=== PATIENT | male | born 1935 | race Caucasian/White ===

== ENCOUNTER → 2017-09-28 | Outpatient (CLI) | payer MEDICARE ==
[~2017-09-28] MED LIST: CALCIUM,MAG,ZINC PO; CHOL40002 PO; FURO40TA6 PO; GLUC1TAB9 PO; LOSA25TA5 PO; OMEG1CAP23 PO; OMNIPAQUE 350 MG/ML, 100ML BOTTLE ONE; POTA20TA6 PO; RANI300C PO; TESTOSTERONE IM; TIZA4TAB PO; TRAM50TA2 PO; TYLENOL ARTHRITIS PO; VITA400C43 PO; WARF3TAB7 PO; WARF7.5T6 PO
== END ==
LOC: CFH 11:56
PROVIDERS: ATTEND Internal Medicine
DX: K40.90 Unilateral inguinal hernia, without obstruction or gangrene, not specified as recurrent (principal); I72.3 Aneurysm of iliac artery; I71.4 Abdominal aortic aneurysm, without rupture; K43.9 Ventral hernia without obstruction or gangrene; K42.9 Umbilical hernia without obstruction or gangrene; J84.10 Pulmonary fibrosis, unspecified; M48.56XD Collapsed vertebra, not elsewhere classified, lumbar region, subsequent encounter for fracture with routine healing; R52 Pain, unspecified
CPT/HCPCS: 74177; Q9967

== ENCOUNTER → 2018-01-16 | Outpatient (CLI) | payer MEDICARE ==
[~2018-01-16] MED LIST changes: -OMNIPAQUE 350 MG/ML, 100ML BOTTLE ONE; +WARF3TAB52 PO; -WARF3TAB7 PO
== END ==
LOC: CFH 08:22
PROVIDERS: ATTEND Internal Medicine
DX: Z02.9 Encounter for administrative examinations, unspecified (principal)

== ENCOUNTER → 2018-05-04 | Outpatient (CLI) | payer MEDICARE ==
[~2018-05-04] MED LIST changes: +WARF7.5T46 PO; -WARF7.5T6 PO
== END | disposition home or self-care (01) ==
LOC: CFH 13:19
PROVIDERS: ATTEND Internal Medicine
DX: I25.10 Atherosclerotic heart disease of native coronary artery without angina pectoris (principal); I71.9 Aortic aneurysm of unspecified site, without rupture; I72.3 Aneurysm of iliac artery; I70.0 Atherosclerosis of aorta; I71.4 Abdominal aortic aneurysm, without rupture; K40.90 Unilateral inguinal hernia, without obstruction or gangrene, not specified as recurrent; K76.0 Fatty (change of) liver, not elsewhere classified; N28.1 Cyst of kidney, acquired; R93.7 Abnormal findings on diagnostic imaging of other parts of musculoskeletal system
CPT/HCPCS: 74174; 82565

== ENCOUNTER → 2018-05-29 | Outpatient (CLI) | payer MEDICARE | END | disposition home or self-care (01) | LOC: CFH 14:03 | PROVIDERS: ATTEND Internal Medicine | DX: G31.9 Degenerative disease of nervous system, unspecified (principal); I73.9 Peripheral vascular disease, unspecified; R41.3 Other amnesia | CPT/HCPCS: 70551 ==

== ENCOUNTER 2019-10-10 06:06 | Inpatient (IN) | payer MEDICARE ==
[~2019-10-10] VITALS: Ht 182.9 cm; Wt 122.3 kg
[~2019-10-10 06:06] MED LIST changes: +LOSA25TA25 PO; -LOSA25TA5 PO; -TIZA4TAB PO; +TIZA4TAB2 PO
--- NOTE | 2019-10-10 06:20 | NUR ---
BIB [facility] FROM HOME WITH C/O DARK RED BLOOD IN URINE X E EPISODES SINCE YESTERDAY. PT ALSO C/O TESTICULAR AND LEFT LOWER BACK PAIN. PROVIDED PT WITH GOWN, MONITORS APPLIED, SIDERAILS UP X2, CALL LIGHT WITHIN REACH
[2019-10-10] MEDS ORDERED: TRAM50TA2 PO (06:28)
[2019-10-10] MEDS ORDERED: ROSU5TAB PO (06:28)
[2019-10-10] MEDS ORDERED: LOSA25TA25 PO (06:28)
[2019-10-10] MEDS ORDERED: ONDANSETRON 2MG/ML, 2ML IVPush ONE (06:30)
[2019-10-10] MEDS ORDERED: ONDANSETRON 2MG/ML, 2ML ONE (06:39)
[2019-10-10] MEDS ORDERED: MORPHINE SULFATE 4 MG/ML, 1ML ONE ×3 (06:39→13:45)
--- NOTE | 2019-10-10 06:45 | NUR ---
CT DELAY, NEED PAIN MED.
[2019-10-10] MEDS: MORPHINE SULFATE 4 MG/ML, 1ML IVPush PRN ×2 (06:47→07:33)
--- NOTE | 2019-10-10 06:47 | NUR ---
pt medicated per mar
--- NOTE | 2019-10-10 06:57 | NUR ---
BEDSIDE REPORT GIVEN TO LIZBETH LONGORIA
--- NOTE | 2019-10-10 06:57 | NUR ---
CT CALLED AND NOTIFIED PT READY
--- NOTE | 2019-10-10 07:05 | NUR ---
REC BS REPORT PT RESTING WAITING ON CT PILLOW PROVIDED REQUESTING MORE PAIN MEDS
[2019-10-10 07:33] LABS: MICROSCOPIC INDICATED
[2019-10-10 07:34] LABS: CULTURE INDICATED? YES
[2019-10-10 07:57] LABS: BASOPHILS # (AUTO) 0.02 x10^3/uL (0-0.1); BASOPHILS % (AUTO) 0 % (0-1); EOSINOPHILS # (AUTO) 0.03 x10^3/uL (0-0.4); EOSINOPHILS % (AUTO) 0 % (1-7); LYMPHOCYTES # (AUTO) 0.84 x10^3/uL (1-3.4); LYMPHOCYTES % (AUTO) 10 % (22-44); MD NO; MEAN CORPUSCULAR HEMOGLOBIN 32.9 pg (27.5-34.5); MEAN CORPUSCULAR VOLUME 99.6 fL (81-97); MONOCYTES # (AUTO) 0.53 x10^3/uL (0.2-0.8); MONOCYTES % (AUTO) 6 % (2-9); NEUTROPHILS # (AUTO) 7.07 x10^3/uL (1.8-6.8); NEUTROPHILS % (AUTO) 83 % (42-75); PLATELET COUNT 133 x10^3/uL (130-400); RED BLOOD COUNT 4.72 x10^6/uL (4.38-5.82); RED CELL DISTRIBUTION WIDTH 14.4 % (9.4-14.8)
[2019-10-10 08:07] LABS: INTERNATIONAL NORMALIZED RATIO 3.89 (0.93-1.1); PROTHROMBIN TIME 38.8 Seconds (9.6-11.5)
[2019-10-10 08:10] LABS: ALANINE AMINOTRANSFERASE 19 U/L (12-78); ANION GAP 7 mmol/L (5-15); CALCIUM 9.1 mg/dL (8.5-10.1); CHLORIDE 109 mmol/L (98-107)
[2019-10-10 08:12] LABS: ALKALINE PHOSPHATASE 101 U/L (45-117); BILIRUBIN,TOTAL 1.2 mg/dL (0.2-1.0)
[2019-10-10] MEDS ORDERED: CEFTRIAXONE PMX 1GM/50ML 50 ML IV ONE (08:30)
[2019-10-10 09:33] LABS: CULTURE INDICATED? NO
--- NOTE | 2019-10-10 09:36 | NUR ---
REPORT RECEIVED FROM LIZBETH LONGORIA. AWAITING UA RESULTS AND DISPO AT THIS TIME.
[2019-10-10 09:44] LABS: MICROSCOPIC INDICATED
--- NOTE | 2019-10-10 10:29 | NUR ---
pt reports 8/10 left flank pain, req pain medicine. pt was 88% on 1L oxygen when assessed by this RN, oxygen titrated to achieve sat >90%. pt requiring 4L oxygen at this time. pts bp 175/87. EDMD Hassan notified of pt's bp, oxygen requirements and request for pain medicine.
[2019-10-10] MEDS ORDERED: LABETALOL 5MG/ML, 20ML IVPush ONE (10:30)
[2019-10-10] MEDS ORDERED: LABETALOL 5MG/ML, 20ML ONE (10:32)
--- NOTE | 2019-10-10 11:11 | NUR ---
HOSPITALIST DWAYNE AT BEDSIDE FOR ADMIT ASSESSMENT.
--- NOTE | 2019-10-10 11:15 | NUR ---
Note undone in EDM - 10/10/19 at 1129 by JP Pop paged a second time to review abx orders. No answer when called, message left with call back number. PIV placed to left foream, IVF restarted to this side as PIV to right forearm is painful at site. Pt resting in hospital bed after changing clothes with RN assist. Resps even and mildly labored, all monitors in place. pt satting >90% on 2L oxygen via NC. awaiting room on med-surg at this time. awaiting RT tx.
[2019-10-10] MEDS ORDERED: SODIUM CHLORIDE 0.9% 1,000 ML IV SCH (11:16)
--- NOTE | 2019-10-10 11:29 | NUR ---
NOTE UNDONE, CHARTED ON WRONG PT.
[2019-10-10] MEDS ORDERED: ONDANSETRON 2MG/ML, 2ML IVPush PRN (11:30)
[2019-10-10] MEDS ORDERED: POLYETHYLENE GLYCOL 17 GM PACKET PO PRN (11:30)
[2019-10-10] MEDS ORDERED: ACETAMINOPHEN 325 MG TABLET PO PRN (11:30)
[2019-10-10] MEDS ORDERED: morphine SULFATE 10 MG/ML, 1ML IVPush PRN (11:30)
[2019-10-10] MEDS ORDERED: HYDROcodone/APAP 5/325 TABLET PO PRN (11:30)
[2019-10-10] MEDS ORDERED: DOCUSATE 100 MG CAPSULE PO PRN (11:30)
[2019-10-10] MEDS ORDERED: BISACODYL 10 MG SUPP PR PRN (11:30)
[2019-10-10] MEDS ORDERED: ENALAPRILAT 1.25 MG/ML, 1ML IV PRN ×2 (11:30→17:30)
--- NOTE | 2019-10-10 11:33 | NUR ---
PAULO RICE NOTIFIED PT REMAINS HYPERTENSIVE WITH SBP 170'S AFTER 10 MG IV LABETALOL. PRN ORDER RECEIVED FOR HYDRALAZINE.
[2019-10-10] MEDS ORDERED: hydrALAzine 20 MG/ML, 1ML ONE ×2 (11:41→15:19)
[2019-10-10] MEDS ORDERED: ENALAPRILAT 1.25 MG/ML, 1ML ONE (11:47)
--- NOTE | 2019-10-10 13:42 | NUR ---
PAULO Guerrero notified repeat bp 188/81 s/p vasotec. PA notified pt is in 9/10 pain to left flank. PA notified repeat room air sat assessment is 88% at this time. pt is a&o, resps are even and unlabored. PA instructed RN to administer PRN morphine for pain and order CXR. PA instructed RN to administer losartan 25 mg PO one time. abd CT results reviewed. RN requested parameters for prn vasotec. PA instructed RN to enter orders for vasotec to be administered for sbp >170.
--- NOTE | 2019-10-10 13:53 | NUR ---
LOSARTAN NOT IN ED DWIGHT MAHAN FROM PHARMACY. PT PLACED INTO HOSPITAL BED. PT MEDICATED PER EMAR WITH MORPHINE. PT TOLERATED WELL. AGRICULTURAL ADVISER AT BEDSIDE.
[2019-10-10] MEDS ORDERED: LOSARTAN 25MG TABLET PO ONE (14:00)
[2019-10-10] MEDS ORDERED: hydrALAzine 20 MG/ML, 1ML IV ONE (15:00)
--- NOTE | 2019-10-10 15:00 | NUR ---
HOSPITALIST DWAYNE NOTIFIED THAT PT IS STILL HYPERTENSIVE DESPITE MORPHINE ADMIN AND PO LOSARTAN ADMIN, (177/103). CXR RESULTS REVIEWED WITH PAULO RICE. ORDERS RECEIVED FOR ECHO AND IV HYDRALAZINE.
--- NOTE | 2019-10-10 15:33 | NUR ---
REPORT GIVEN TO LIZBETH GRAY AT BEDSIDE. PT FOUND TO BE OUT OF BED, PIV DISCONNECTED WITH LARGE AMOUNT OF BLOOD IN ROOM FROM IV HUB. PT STATES HE WAS GETTING OOB TO VOID. PIV DC'D WITH TIP INTACT. PIV REPLACED. PT CLEANED AND ASSISTED TO VOID. PT REMINDED OF HOW TO USE CALL LIGHT AND NEED TO CALL STAFF FOR ASSIST. PT HAS VOIDED APPROX 300ML BLOODY URINE. HOSPITALIST DWAYNE NOTIFIED. PT REMAINS A&O, RESPS EVEN AND UNLABORED. PT IN HOSPITAL BED. PT TO HAVE REPEAT BP TAKEN PRIOR TO HYDRALAZINE ADMIN. LIZBETH GRAY ASSUMING CARE AT THIS TIME.
[2019-10-10] MEDS ORDERED: PHYTONADIONE 10 MG in SODIUM CHLORIDE 0.9% 50 ML IV ONE (16:00)
--- NOTE | 2019-10-10 16:11 | NUR ---
FALL PRECAUTIONS IN PLACE, SIDE RAILS UP, CALL LIGHT IN LAP, INSTRUCTED PT TO CALL FOR ASSISTANCE IF NEEDING TO VOID AGAIN
--- NOTE | 2019-10-10 16:11 | NUR ---
BREAK RN FOR PRIMARY RN MARINA. BEDSIDE REPORT FROM MARINA. ADMITTING PROVIDER MARINA RICE AT BEDSIDE. IV HYDRALAZINE BEING HELD AT THIS TIME PER PROVIDER DWAYNE. VSS. LAB AT BEDSIDE. PT ASSISTED WITH URINAL, 100ML BLOODY URINE NOTED. DISCUSSED WITH MARINA RICE, ADMITTING PROVIDER, AWARE, NO NEW ORDERS RECEIVED. PT LEVEL OF CARE CHANGED TO MED TELE AT THIS TIME PER ADMIT PROVIDER. AQU[place]TON REQUESTED FROM PHARMACY
--- NOTE | 2019-10-10 16:38 | NUR ---
BREAK RN. ECHO AT BEDSIDE
--- NOTE | 2019-10-10 16:55 | NUR ---
BEDSIDE REPORT AND CARE BACK TO PRIMARY RN MARINA. PT ASSISTED WITH URINAL, RESTING IN POSITION OF COMFORT. VSS. CALL LIGHT IN REACH. ECHO REMAINS AT BEDSIDE
[2019-10-10 19:19] VITALS: BP 137/75
[2019-10-10 20:43] VITALS: BP 127/75
[2019-10-11 01:13] VITALS: BP 150/78
[2019-10-11 03:50] VITALS: BP 173/85
[2019-10-11 05:08] VITALS: BP 127/77
[2019-10-11 05:46] LABS: INTERNATIONAL NORMALIZED RATIO 1.98 (0.93-1.1); PROTHROMBIN TIME 20.3 Seconds (9.6-11.5)
[2019-10-11 05:52] LABS: BASOPHILS # (AUTO) 0.01 x10^3/uL (0-0.1); BASOPHILS % (AUTO) 0 % (0-1); EOSINOPHILS # (AUTO) 0.02 x10^3/uL (0-0.4); EOSINOPHILS % (AUTO) 0 % (1-7); LYMPHOCYTES # (AUTO) 0.93 x10^3/uL (1-3.4); LYMPHOCYTES % (AUTO) 11 % (22-44); MD NO; MEAN CORPUSCULAR HEMOGLOBIN 33.4 pg (27.5-34.5); MEAN CORPUSCULAR HGB CONC 32.8 g/dL (33.2-36.2); MEAN CORPUSCULAR VOLUME 101.9 fL (81-97); MEAN PLATELET VOLUME 9.9 fL (7.4-10.4); MONOCYTES # (AUTO) 1.07 x10^3/uL (0.2-0.8); MONOCYTES % (AUTO) 13 % (2-9); NEUTROPHILS # (AUTO) 6.53 x10^3/uL (1.8-6.8); NEUTROPHILS % (AUTO) 76 % (42-75); PLATELET COUNT 126 x10^3/uL (130-400); RED BLOOD COUNT 4.32 x10^6/uL (4.38-5.82); RED CELL DISTRIBUTION WIDTH 14.7 % (9.4-14.8)
[2019-10-11 06:08] LABS: ALBUMIN 3.5 g/dL (3.4-5.0); ANION GAP 7 mmol/L (5-15); CALCIUM 8.9 mg/dL (8.5-10.1); CHLORIDE 107 mmol/L (98-107)
[2019-10-11 06:21] LABS: ALANINE AMINOTRANSFERASE 21 U/L (12-78); ALKALINE PHOSPHATASE 76 U/L (45-117); BILIRUBIN,TOTAL 1.8 mg/dL (0.2-1.0); CREATININE 0.89 mg/dL (0.7-1.3); TOTAL PROTEIN 7.1 g/dL (6.4-8.2)
[2019-10-11] MEDS ORDERED: CEFTRIAXONE PMX 1GM/50ML 50 ML IV SCH (07:30)
[2019-10-11] MEDS ORDERED: LOSARTAN 25MG TABLET PO SCH (09:00)
[2019-10-11] MEDS ORDERED: LACTOBACILLUS CHEW TABLET PO SCH (09:00)
[2019-10-11] MEDS ORDERED: SODIUM CHLORIDE 0.9% 1,000 ML IV SCH (11:16)
[2019-10-11] MEDS ORDERED: WARFARIN 2 MG TABLET PO-COUM SCH (18:00)
== END 2019-10-11 11:09 | disposition home or self-care (01) | DRG 694 ==
LOC: ED 08:08 → EDIP 09:39 → 4EST 18:40 → DCLOUNGE 10-11 11:01
PROVIDERS: ADMIT Family Medicine; ATTEND Internal Medicine
PROC: 0T9B70Z Drainage of Bladder with Drainage Device, Via Natural or Artificial Opening (ICD-10-PCS; principal; 2019-10-10)
DX: N13.2 Hydronephrosis with renal and ureteral calculous obstruction (principal); D68.69 Other thrombophilia; I48.20 Chronic atrial fibrillation, unspecified; D75.89 Other specified diseases of blood and blood-forming organs; E88.09 Other disorders of plasma-protein metabolism, not elsewhere classified; I10 Essential (primary) hypertension; I71.4 Abdominal aortic aneurysm, without rupture; M19.90 Unspecified osteoarthritis, unspecified site; M85.80 Other specified disorders of bone density and structure, unspecified site; R31.0 Gross hematuria; Z79.01 Long term (current) use of anticoagulants; Z80.3 Family history of malignant neoplasm of breast; Z86.79 Personal history of other diseases of the circulatory system; Z87.442 Personal history of urinary calculi; Z87.11 Personal history of peptic ulcer disease; Z87.891 Personal history of nicotine dependence; Z88.6 Allergy status to analgesic agent; Z88.8 Allergy status to other drugs, medicaments and biological substances
CPT/HCPCS: 36415; 71045; 74176; 80053; 81001; 81003; 83735; 84100; 84443; 85014; 85018; 85025; 85610; 87077; 87086; 87186; 93306; 99285; G0378; J2405; J3430; J2270; J7030

== ENCOUNTER → 2019-10-18 | Outpatient (CLI) | payer MEDICARE ==
[~2019-10-18] MED LIST changes: +ROSU5TAB PO
== END | disposition home or self-care (01) ==
LOC: CFH 09:22
PROVIDERS: ATTEND Internal Medicine
DX: I51.7 Cardiomegaly (principal); J92.9 Pleural plaque without asbestos
CPT/HCPCS: 71046

== ENCOUNTER 2019-10-30 10:07 | Inpatient (IN) | payer MEDICARE ==
[2019-10-30] VITALS (12 sets, daily range): BP systolic 83–108; BP diastolic 39–55
[~2019-10-30] VITALS: Ht 167.6 cm; Wt 107.5 kg
[2019-10-30] MEDS ORDERED: SODIUM CHLORIDE FLUSH 10ML SYR IVF ONE (11:00)
[2019-10-30] MEDS ORDERED: ONDANSETRON 2MG/ML, 2ML IVPush ONE (11:00)
[2019-10-30] MEDS ORDERED: SODIUM CHLORIDE 0.9% 1,000ML IVBOLUS ONE ×4 (11:00→14:30)
[2019-10-30] MEDS ORDERED: PANTOPRAZOLE 40 MG IV IVPush ONE (11:00)
[2019-10-30 11:15] LABS: BASOPHILS # (AUTO) 0.02 x10^3/uL (0-0.1); BASOPHILS % (AUTO) 0 % (0-1); EOSINOPHILS # (AUTO) 0.04 x10^3/uL (0-0.4); EOSINOPHILS % (AUTO) 0 % (1-7); LYMPHOCYTES # (AUTO) 1.13 x10^3/uL (1-3.4); LYMPHOCYTES % (AUTO) 10 % (22-44); MD NO; MEAN CORPUSCULAR HEMOGLOBIN 32.5 pg (27.5-34.5); MEAN CORPUSCULAR HGB CONC 33.1 g/dL (33.2-36.2); MEAN CORPUSCULAR VOLUME 98.2 fL (81-97); MEAN PLATELET VOLUME 9.6 fL (7.4-10.4); MONOCYTES # (AUTO) 0.74 x10^3/uL (0.2-0.8); MONOCYTES % (AUTO) 7 % (2-9); NEUTROPHILS # (AUTO) 9.16 x10^3/uL (1.8-6.8); NEUTROPHILS % (AUTO) 83 % (42-75); PLATELET COUNT 158 x10^3/uL (130-400); RED BLOOD COUNT 3.45 x10^6/uL (4.38-5.82); RED CELL DISTRIBUTION WIDTH 14.4 % (9.4-14.8)
[2019-10-30 11:22] LABS: INTERNATIONAL NORMALIZED RATIO 4.92 (0.93-1.1); PROTHROMBIN TIME 48.6 Seconds (9.6-11.5)
[2019-10-30] MEDS ORDERED: PHYTONADIONE 10 MG/ML, 1ML ONE (11:49)
[2019-10-30] MEDS ORDERED: PANTOPRAZOLE 40 MG IV ONE (11:49)
[2019-10-30] MEDS ORDERED: ONDANSETRON 2MG/ML, 2ML ONE (11:49)
--- NOTE | 2019-10-30 11:59 | NUR ---
CT WAITING FOR LAB RESULTS
[2019-10-30] MEDS ORDERED: PHYTONADIONE 10 MG/ML, 1ML IM ONE (12:00)
--- NOTE | 2019-10-30 12:13 | NUR ---
DR ACUNA AT BEDSIDE. TEST RESULTS POC INCLUDING FFP INFUSION DISCUSSED AND QUESTIONS ANSWERED. PT MED NOTED AND CONSENT FOR FFP OBTAINED. PT OOB WITH RN ASSIST, VOIDED USING URINAL. PT RTD TO BED, CALL LIGHT W/I REACH
[2019-10-30 12:57] LABS: ALBUMIN 2.4 g/dL (3.4-5.0); ANION GAP 7 mmol/L (5-15); CALCIUM 8.3 mg/dL (8.5-10.1); CHLORIDE 112 mmol/L (98-107)
--- NOTE | 2019-10-30 13:00 | NUR ---
FFP INFUSION COMPLETED. PT TOLLERATED WELL.
[2019-10-30 13:03] LABS: ALANINE AMINOTRANSFERASE 29 U/L (12-78); ALKALINE PHOSPHATASE 59 U/L (45-117); BILIRUBIN,TOTAL 0.9 mg/dL (0.2-1.0); CREATININE 1.23 mg/dL (0.7-1.3); TOTAL PROTEIN 5.2 g/dL (6.4-8.2)
--- NOTE | 2019-10-30 13:16 | NUR ---
RN ASSISTED PT TO SIT AT SIDE OF [facility] TO USE URINAL. PT VOIDED SMALL AMT NOTED ON FLOWSHEET. PT TO CT WITH TECH TRANSPORT
[2019-10-30] MEDS ORDERED: OMNIPAQUE 350 MG/ML, 150 ML BOTTLE ONE (13:30)
[2019-10-30] MEDS ORDERED: SODIUM CHLORIDE FLUSH 10ML SYR IVF PRN (13:30)
--- NOTE | 2019-10-30 13:38 | NUR ---
PT BP CONTINUES LOW DESPITE FLUIDS AND FFP. PT ASYMPTOMATIC. DISCUSSED WITH DR. ACUNA, ADDITIONAL FLUID ORDER REC'D.
[2019-10-30] MEDS ORDERED: SODIUM CHLORIDE 0.9% 1,000 ML IV SCH (13:53)
[2019-10-30 13:54] LABS: MICROSCOPIC NOT IND
[2019-10-30 13:55] LABS: CULTURE INDICATED? NO
[2019-10-30] MEDS ORDERED: ONDANSETRON ODT 4 MG PO PRN (14:00)
[2019-10-30] MEDS ORDERED: ONDANSETRON 2MG/ML, 2ML IVPush PRN (14:00)
[2019-10-30] MEDS ORDERED: ACETAMINOPHEN 325 MG TABLET PO PRN (14:00)
[2019-10-30 14:08] LABS: INTERNATIONAL NORMALIZED RATIO 4.1 (0.93-1.1); PROTHROMBIN TIME 40.8 Seconds (9.6-11.5)
--- NOTE | 2019-10-30 14:24 | NUR ---
TASK RN; LARGE BORE PIV PLACED, NO COMPLICATIONS.
[2019-10-30] MEDS ORDERED: PHYTONADIONE 10 MG/ML, 1ML SQ ONE ×3 (14:30→19:30)
[2019-10-30] MEDS: PANTOPRAZOLE 80 MG in SODIUM CHLORIDE 0.9% 100 ML IV SCH (15:03)
[2019-10-30] MEDS ORDERED: TEST75PE6 IM (15:31)
[2019-10-30] MEDS ORDERED: ACET650S21 PO (15:31)
[2019-10-30] MEDS ORDERED: TRAM50TA2 PO (15:31)
[2019-10-30] MEDS ORDERED: FURO40TA6 PO (15:31)
[2019-10-30] MEDS ORDERED: POTA20TA6 PO (15:31)
[2019-10-30] MEDS ORDERED: MORPHINE SULFATE 4 MG/ML, 1ML ONE (16:03)
[2019-10-30] MEDS ORDERED: LABETALOL 5MG/ML, 20ML IVPush PRN (19:00)
[2019-10-31 00:27] VITALS: BP 106/47
[2019-10-31] MEDS: PANTOPRAZOLE 80 MG in SODIUM CHLORIDE 0.9% 100 ML IV SCH ×3 (00:39→21:04)
[2019-10-31 01:00] VITALS: BP 106/45
[2019-10-31 04:41] LABS: % IRON SATURATION 92 % (20-55); ANION GAP 4 mmol/L (5-15); CALCIUM 8.2 mg/dL (8.5-10.1); CHLORIDE 120 mmol/L (98-107); CREATININE 0.92 mg/dL (0.7-1.3); IRON LEVEL 230 mcg/dL (65-175); TOTAL IRON BINDING CAPACITY 249 mcg/dL (250-450)
[2019-10-31] MEDS ORDERED: MIDAZOLAM 1 MG/ML, 5ML ONE (06:44)
[2019-10-31] MEDS ORDERED: FENTANYL PF 100 MCG/2ML ONE ×3 (06:44→08:09)
[2019-10-31] MEDS ORDERED: SIMETHICONE DROPS 40 MG/0.6 ML BOTTLE ONE (07:23)
[2019-10-31 07:31] LABS: INTERNATIONAL NORMALIZED RATIO 2.73 (0.93-1.1); PROTHROMBIN TIME 27.6 Seconds (9.6-11.5)
[2019-10-31] MEDS ORDERED: LOSARTAN 25MG TABLET PO SCH (09:00)
[2019-10-31] MEDS ORDERED: FUROSEMIDE 20 MG/2 ML IV ONE (09:30)
[2019-10-31] MEDS: SUCRALFATE 1 GM/10 ML UDC PO SCH ×4 (09:56→21:04)
[2019-10-31] MEDS: SUCRALFATE 1 GM TABLET PO SCH ×3 (11:00→21:00)
[2019-10-31] MEDS ORDERED: SODIUM CHLORIDE 0.9% 1,000 ML IV SCH (13:53)
[2019-10-31 21:30] VITALS: BP 117/71
[2019-10-31] MEDS: MELATONIN 5 MG TABLET PO PRN (22:47)
[2019-11-01] MEDS ORDERED: TEMAZEPAM 15 MG CAPSULE PO ONE (01:00)
[2019-11-01 01:14] VITALS: BP 144/76
[2019-11-01 05:39] LABS: INTERNATIONAL NORMALIZED RATIO 1.66 (0.93-1.1); PROTHROMBIN TIME 17.1 Seconds (9.6-11.5)
[2019-11-01 05:40] LABS: ANION GAP 3 mmol/L (5-15); CALCIUM 8.5 mg/dL (8.5-10.1); CHLORIDE 113 mmol/L (98-107)
[2019-11-01 05:41] LABS: BASOPHILS # (AUTO) 0.01 x10^3/uL (0-0.1); BASOPHILS % (AUTO) 0 % (0-1); EOSINOPHILS # (AUTO) 0.17 x10^3/uL (0-0.4); EOSINOPHILS % (AUTO) 3 % (1-7); LYMPHOCYTES # (AUTO) 1.16 x10^3/uL (1-3.4); LYMPHOCYTES % (AUTO) 17 % (22-44); MD NO; MEAN CORPUSCULAR HEMOGLOBIN 32.4 pg (27.5-34.5); MEAN CORPUSCULAR HGB CONC 33.7 g/dL (33.2-36.2); MEAN CORPUSCULAR VOLUME 96.3 fL (81-97); MONOCYTES # (AUTO) 0.74 x10^3/uL (0.2-0.8); MONOCYTES % (AUTO) 11 % (2-9); NEUTROPHILS # (AUTO) 4.68 x10^3/uL (1.8-6.8); NEUTROPHILS % (AUTO) 69 % (42-75); PLATELET COUNT 111 x10^3/uL (130-400); RED BLOOD COUNT 2.87 x10^6/uL (4.38-5.82); RED CELL DISTRIBUTION WIDTH 16.1 % (9.4-14.8)
[2019-11-01] MEDS: SUCRALFATE 1 GM TABLET PO SCH (06:31)
[2019-11-01] MEDS: PANTOPRAZOLE 80 MG in SODIUM CHLORIDE 0.9% 100 ML IV SCH (06:32)
[2019-11-01] MEDS: SUCRALFATE 1 GM/10 ML UDC PO SCH ×4 (06:32→20:37)
[2019-11-01 06:52] VITALS: BP 118/57
[2019-11-01] MEDS: PANTOPROZOLE 40MG TABLET PO SCH ×2 (11:58→20:37)
[2019-11-01 19:05] VITALS: BP 108/65
[2019-11-02] MEDS: MELATONIN 5 MG TABLET PO PRN (00:36)
[2019-11-02 02:03] VITALS: BP 117/76
[2019-11-02 06:15] LABS: BASOPHILS # (AUTO) 0.02 x10^3/uL (0-0.1); BASOPHILS % (AUTO) 0 % (0-1); EOSINOPHILS # (AUTO) 0.15 x10^3/uL (0-0.4); EOSINOPHILS % (AUTO) 2 % (1-7); LYMPHOCYTES # (AUTO) 1.09 x10^3/uL (1-3.4); LYMPHOCYTES % (AUTO) 17 % (22-44); MD NO; MEAN CORPUSCULAR HEMOGLOBIN 32.8 pg (27.5-34.5); MEAN CORPUSCULAR HGB CONC 33.7 g/dL (33.2-36.2); MEAN CORPUSCULAR VOLUME 97.4 fL (81-97); MEAN PLATELET VOLUME 9.6 fL (7.4-10.4); MONOCYTES # (AUTO) 0.73 x10^3/uL (0.2-0.8); MONOCYTES % (AUTO) 12 % (2-9); NEUTROPHILS # (AUTO) 4.34 x10^3/uL (1.8-6.8); NEUTROPHILS % (AUTO) 69 % (42-75); PLATELET COUNT 117 x10^3/uL (130-400); RED BLOOD COUNT 2.79 x10^6/uL (4.38-5.82); RED CELL DISTRIBUTION WIDTH 15.5 % (9.4-14.8)
[2019-11-02] MEDS: SUCRALFATE 1 GM/10 ML UDC PO SCH ×2 (07:37→11:00)
[2019-11-02] MEDS: PANTOPROZOLE 40MG TABLET PO SCH (07:37)
[2019-11-02 09:22] VITALS: BP 127/75
[2019-11-02] MEDS ORDERED: SUCR1ORA5 PO (10:24)
[2019-11-02] MEDS ORDERED: PANT40TA5 PO (10:24)
== END 2019-11-02 13:00 | disposition home or self-care (01) | DRG 377 ==
LOC: ED 11:23 → EDIP 13:22 → ICU 15:13 → 3N 10-31 18:00 → DCLOUNGE 11-02 12:49
PROVIDERS: ADMIT Internal Medicine; ATTEND Internal Medicine
PROC: 30233K1 Transfusion of Nonautologous Frozen Plasma into Peripheral Vein, Percutaneous Approach (ICD-10-PCS; principal; 2019-10-30)
PROC: 30233N1 Transfusion of Nonautologous Red Blood Cells into Peripheral Vein, Percutaneous Approach (ICD-10-PCS; 2019-10-30)
PROC: 0DJ08ZZ Inspection of Upper Intestinal Tract, Via Natural or Artificial Opening Endoscopic (ICD-10-PCS; 2019-10-31)
DX: K26.4 Chronic or unspecified duodenal ulcer with hemorrhage (principal); R57.1 Hypovolemic shock; J96.91 Respiratory failure, unspecified with hypoxia; N17.9 Acute kidney failure, unspecified; D62 Acute posthemorrhagic anemia; D68.69 Other thrombophilia; E87.0 Hyperosmolality and hypernatremia; I48.20 Chronic atrial fibrillation, unspecified; D68.9 Coagulation defect, unspecified; N13.2 Hydronephrosis with renal and ureteral calculous obstruction; D72.829 Elevated white blood cell count, unspecified; E66.9 Obesity, unspecified; Z68.38 Body mass index [BMI] 38.0-38.9, adult; G31.84 Mild cognitive impairment of uncertain or unknown etiology; I10 Essential (primary) hypertension; I27.20 Pulmonary hypertension, unspecified; I71.4 Abdominal aortic aneurysm, without rupture; M19.90 Unspecified osteoarthritis, unspecified site; M85.80 Other specified disorders of bone density and structure, unspecified site; T45.515A Adverse effect of anticoagulants, initial encounter; Z79.01 Long term (current) use of anticoagulants; Z80.3 Family history of malignant neoplasm of breast; Z87.442 Personal history of urinary calculi; Z87.891 Personal history of nicotine dependence; Y92.89 Other specified places as the place of occurrence of the external cause
CPT/HCPCS: 36415; 71045; 74177; 80048; 80053; 81003; 83540; 83550; 83605; 83690; 83880; 85014; 85018; 85025; 85610; 86850; 86900; 86923; 87081; 93005; 99291; G0378; J2250; J2405; J3010; J3430; Q9967; C9113; J1940; J7030; P9016; P9017

== ENCOUNTER 2020-06-21 14:04 | Observation (INO) | payer MEDICARE ==
[~2020-06-21] VITALS: Ht 182.9 cm; Wt 113.2 kg
[~2020-06-21 14:04] MED LIST changes: +ACET650S21 PO; +PANT40TA6 PO; +SUCR1ORA5 PO; +TEST75PE6 IM
--- NOTE | 2020-06-21 14:17 | NUR ---
ASSUME CARE OF PATIENT. PATIENT LUIGI [facility] FOR A MGLF IN HIS BACKYARD. PT HIS HIS HEAD. NO LOC, BUT PT DOES HAVE A HEMATOMA ON THE BACK OF HIS HEAD. PT IS TAKING COUMADIN. PT ALSO HAS SEVERAL ABRASIONS ON HIS RIGHT ARM. VS STABLE. NO ACUTE DISTRESS NOTED. WILL CONTINUE TO MONITOR.
[2020-06-21] MEDS ORDERED: testosterone (14:22)
[2020-06-21] MEDS ORDERED: SODIUM CHLORIDE FLUSH 10ML SYR IVF ONE (14:30)
[2020-06-21] MEDS ORDERED: DIPH,PERTUSS(ACELL),TET VAC/PF 0.5 ML IM-VACC ONE ×2 (14:30→14:40)
[2020-06-21 14:56] LABS: BASOPHILS # (AUTO) 0.01 x10^3/uL (0-0.1); BASOPHILS % (AUTO) 0 % (0-1); EOSINOPHILS # (AUTO) 0.11 x10^3/uL (0-0.4); EOSINOPHILS % (AUTO) 2 % (1-7); LYMPHOCYTES # (AUTO) 0.97 x10^3/uL (1-3.4); LYMPHOCYTES % (AUTO) 15 % (22-44); MD NO; MEAN CORPUSCULAR HEMOGLOBIN 31.9 pg (27.5-34.5); MEAN CORPUSCULAR HGB CONC 33.2 g/dL (33.2-36.2); MEAN CORPUSCULAR VOLUME 96.2 fL (81-97); MEAN PLATELET VOLUME 9.6 fL (7.4-10.4); MONOCYTES # (AUTO) 0.77 x10^3/uL (0.2-0.8); MONOCYTES % (AUTO) 12 % (2-9); NEUTROPHILS # (AUTO) 4.59 x10^3/uL (1.8-6.8); NEUTROPHILS % (AUTO) 71 % (42-75); PLATELET COUNT 121 x10^3/uL (130-400); RED BLOOD COUNT 4.34 x10^6/uL (4.38-5.82); RED CELL DISTRIBUTION WIDTH 16.6 % (9.4-14.8)
[2020-06-21 15:05] LABS: ALANINE AMINOTRANSFERASE 20 U/L (12-78); ALBUMIN 3.7 g/dL (3.4-5.0); ANION GAP 6 mmol/L (5-15); CALCIUM 8.9 mg/dL (8.5-10.1); CHLORIDE 111 mmol/L (98-107); CREATININE 1.09 mg/dL (0.7-1.3)
[2020-06-21 15:07] LABS: ALKALINE PHOSPHATASE 126 U/L (45-117); TOTAL PROTEIN 7.4 g/dL (6.4-8.2)
--- NOTE | 2020-06-21 15:11 | NUR ---
PT YELLING IN PAIN, PT HAS A LEG CRAMP WHEN LAYING BACK IN BED. PT PLACED ON WAFFLE MATTRESS, BUT DID NOT HELP THE PAIN. PT REFUSES TO STAY IN THE BED. PT SITTING IN CHAIR. AT BEDSIDE. PROVIDER AWARE.
[2020-06-21 15:14] LABS: INTERNATIONAL NORMALIZED RATIO 1.65 (0.93-1.1); PROTHROMBIN TIME 17.1 Seconds (9.6-11.5)
--- NOTE | 2020-06-21 15:16 | NUR ---
PT WENT TO CT
--- NOTE | 2020-06-21 15:31 | NUR ---
CT CALLED, TEST NOT DONE, PT REFUSES TO LAY FLAT. PROVIDER AWARE.
--- NOTE | 2020-06-21 15:50 | NUR ---
RECEIVED REPORT FROM MARCELL NIEVES AND [facility]
[2020-06-21] MEDS ORDERED: ACETAMINOPHEN 325 MG TABLET ONE (15:54)
[2020-06-21] MEDS ORDERED: DIAZEPAM 5 MG/ML, 2ML ONE (15:54)
[2020-06-21] MEDS ORDERED: CYCLOBENZAPRINE 10 MG TABLET PO ONE (16:00)
[2020-06-21] MEDS ORDERED: ACETAMINOPHEN 325 MG TABLET PO ONE (16:00)
[2020-06-21] MEDS ORDERED: DIAZEPAM 5 MG/ML, 2ML IV ONE (16:00)
--- NOTE | 2020-06-21 16:03 | NUR ---
MEDICATED NOTED ON MAR IN ATTEMPT TO HELP PT WITH LEG CRAMPING AND TO TOLERATE CT.
--- NOTE | 2020-06-21 16:11 | NUR ---
TO CT VIA [facility]
[2020-06-21] MEDS ORDERED: OMNIPAQUE 350 MG/ML, 75ML BOTTLE ONE (16:51)
--- NOTE | 2020-06-21 16:57 | NUR ---
box icer note: Pt's son Serge's phone number: [phone] Per pt's Serge needs to be called with updates for pt POC. Serge is the pt's ride home.
--- NOTE | 2020-06-21 18:33 | NUR ---
PT AWARE OF INTENTION TO ADMIT. NO LONGER HAVING LEG CRAMPS AT THIS TIME. CONTINUE TO MONITOR.
--- NOTE | 2020-06-21 18:59 | NUR ---
PROVIDED SNACKS. REPORT TO MARIA R NIEVES
[2020-06-21] MEDS ORDERED: BISACODYL 10 MG SUPP PR PRN (19:30)
[2020-06-21] MEDS ORDERED: ACETAMINOPHEN 650 MG/20.3 ML UDC PO PRN (19:30)
[2020-06-21] MEDS ORDERED: ONDANSETRON ODT 4 MG PO PRN (19:30)
[2020-06-21] MEDS ORDERED: POLYETHYLENE GLYCOL 17 GM PACKET PO PRN (19:30)
--- NOTE | 2020-06-21 19:55 | NUR ---
Pt up to chair with 1 staff assist to eat dinner. Call light within reach
--- NOTE | 2020-06-21 20:02 | NUR ---
Attempted report x1 at 2000
--- NOTE | 2020-06-21 20:13 | NUR ---
Report given to Maisha NIEVES
[2020-06-21] MEDS: SODIUM CHLORIDE FLUSH 10ML SYR IVF SCH (21:00)
[2020-06-21 22:29] VITALS: BP 143/67
[2020-06-22 03:13] VITALS: BP 150/79
[2020-06-22 07:03] VITALS: BP 150/78
[2020-06-22] MEDS: SODIUM CHLORIDE FLUSH 10ML SYR IVF SCH (08:40)
[2020-06-22] MEDS ORDERED: SENNA/DOCUSATE TABLET PO SCH (09:00)
[2020-06-22] MEDS ORDERED: POTASSIUM CHLORIDE 20 MEQ TAB.ER.PRT PO SCH (09:00)
[2020-06-22] MEDS ORDERED: LOSARTAN 25MG TABLET PO SCH (09:00)
[2020-06-22] MEDS ORDERED: FUROSEMIDE 40 MG TABLET PO SCH (09:00)
== END 2020-06-22 11:05 | disposition home or self-care (01) ==
LOC: ED 14:31 → EDIP 17:56 → INTOOBSV 17:56 → 3N 21:45 → DCLOUNGE 06-22 11:00
PROVIDERS: ADMIT Family Medicine; ATTEND Family Medicine
DX: S01.01XA Laceration without foreign body of scalp, initial encounter (principal); I48.20 Chronic atrial fibrillation, unspecified; D68.69 Other thrombophilia; D69.6 Thrombocytopenia, unspecified; I10 Essential (primary) hypertension; M19.90 Unspecified osteoarthritis, unspecified site; I71.4 Abdominal aortic aneurysm, without rupture; M85.80 Other specified disorders of bone density and structure, unspecified site; Z23 Encounter for immunization; Z79.01 Long term (current) use of anticoagulants; W01.0XXA Fall on same level from slipping, tripping and stumbling without subsequent striking against object, initial encounter; Y92.009 Unspecified place in unspecified non-institutional (private) residence as the place of occurrence of the external cause; Y93.01 Activity, walking, marching and hiking
CPT/HCPCS: 36415; 70450; 71260; 72125; 80053; 85025; 85610; 90471; 90715; 96374; 99285; G0378; J3360; Q9967

== ENCOUNTER → 2020-10-03 | Outpatient (CLI) | payer MEDICARE ==
[~2020-10-03] MED LIST changes: +OMNIPAQUE 350 MG/ML, 150 ML BOTTLE ONE; +testosterone
== END | disposition home or self-care (01) ==
LOC: CFH 09:57
PROVIDERS: ATTEND Physician Assistant Surgical
DX: I71.4 Abdominal aortic aneurysm, without rupture (principal); N20.0 Calculus of kidney; N28.1 Cyst of kidney, acquired; R31.29 Other microscopic hematuria; Z96.641 Presence of right artificial hip joint
CPT/HCPCS: 74178; 82565; Q9967

== ENCOUNTER 2020-11-25 13:24 | Outpatient (CLI) | payer MEDICARE ==
[~2020-11-25 13:24] MED LIST changes: -OMNIPAQUE 350 MG/ML, 150 ML BOTTLE ONE
== END 2020-11-25 23:59 | disposition home or self-care (01) ==
LOC: WOUND 13:24
PROVIDERS: ATTEND Nurse Practitioner Family
DX: I87.333 Chronic venous hypertension (idiopathic) with ulcer and inflammation of bilateral lower extremity (principal); L97.822 Non-pressure chronic ulcer of other part of left lower leg with fat layer exposed; L97.812 Non-pressure chronic ulcer of other part of right lower leg with fat layer exposed; L03.115 Cellulitis of right lower limb; L03.116 Cellulitis of left lower limb; K21.9 Gastro-esophageal reflux disease without esophagitis; I48.91 Unspecified atrial fibrillation; I10 Essential (primary) hypertension; E78.5 Hyperlipidemia, unspecified; Z87.891 Personal history of nicotine dependence; Z79.01 Long term (current) use of anticoagulants
CPT/HCPCS: 29581; G0463

== ENCOUNTER 2020-11-28 10:25 | Outpatient (CLI) | payer MEDICARE | END 2020-11-28 23:59 | disposition home or self-care (01) | LOC: WOUND 10:25 | PROVIDERS: ATTEND Internal Medicine Cardiovascular Disease | DX: I87.333 Chronic venous hypertension (idiopathic) with ulcer and inflammation of bilateral lower extremity (principal); L97.812 Non-pressure chronic ulcer of other part of right lower leg with fat layer exposed; L97.822 Non-pressure chronic ulcer of other part of left lower leg with fat layer exposed; L03.115 Cellulitis of right lower limb; L03.116 Cellulitis of left lower limb; I87.2 Venous insufficiency (chronic) (peripheral); I48.91 Unspecified atrial fibrillation; I10 Essential (primary) hypertension; K21.9 Gastro-esophageal reflux disease without esophagitis; E78.5 Hyperlipidemia, unspecified; Z87.891 Personal history of nicotine dependence; Z96.642 Presence of left artificial hip joint; Z79.01 Long term (current) use of anticoagulants; Z90.89 Acquired absence of other organs | CPT/HCPCS: 29581 ==

== ENCOUNTER 2020-12-02 13:27 | Outpatient (CLI) | payer MEDICARE | END 2020-12-02 23:59 | disposition home or self-care (01) | LOC: WOUND 13:27 | PROVIDERS: ATTEND Nurse Practitioner Family | DX: I87.333 Chronic venous hypertension (idiopathic) with ulcer and inflammation of bilateral lower extremity (principal); L97.821 Non-pressure chronic ulcer of other part of left lower leg limited to breakdown of skin; L97.811 Non-pressure chronic ulcer of other part of right lower leg limited to breakdown of skin; L03.115 Cellulitis of right lower limb; L03.116 Cellulitis of left lower limb; I48.91 Unspecified atrial fibrillation; I10 Essential (primary) hypertension; K21.9 Gastro-esophageal reflux disease without esophagitis; E78.5 Hyperlipidemia, unspecified; Z87.891 Personal history of nicotine dependence; Z96.642 Presence of left artificial hip joint; Z79.01 Long term (current) use of anticoagulants; Z90.89 Acquired absence of other organs | CPT/HCPCS: 29581; G0463 ==

== ENCOUNTER → 2020-12-09 | Outpatient (CLI) | payer MEDICARE | END | disposition home or self-care (01) | LOC: WOUND 13:56 | PROVIDERS: ATTEND Nurse Practitioner Family | DX: I87.333 Chronic venous hypertension (idiopathic) with ulcer and inflammation of bilateral lower extremity (principal); L97.821 Non-pressure chronic ulcer of other part of left lower leg limited to breakdown of skin; L97.811 Non-pressure chronic ulcer of other part of right lower leg limited to breakdown of skin; L03.115 Cellulitis of right lower limb; L03.116 Cellulitis of left lower limb; I48.91 Unspecified atrial fibrillation; I10 Essential (primary) hypertension; K21.9 Gastro-esophageal reflux disease without esophagitis; E78.5 Hyperlipidemia, unspecified; Z87.891 Personal history of nicotine dependence; Z96.642 Presence of left artificial hip joint; Z79.01 Long term (current) use of anticoagulants; Z90.89 Acquired absence of other organs | CPT/HCPCS: G0463 ==

== ENCOUNTER 2020-12-17 07:53 | Outpatient (CLI) | payer MEDICARE | END 2020-12-17 23:59 | disposition home or self-care (01) | LOC: WOUND 07:53 | PROVIDERS: ATTEND Nurse Practitioner Family | DX: I87.333 Chronic venous hypertension (idiopathic) with ulcer and inflammation of bilateral lower extremity (principal); L97.822 Non-pressure chronic ulcer of other part of left lower leg with fat layer exposed; L97.811 Non-pressure chronic ulcer of other part of right lower leg limited to breakdown of skin; L03.115 Cellulitis of right lower limb; L03.116 Cellulitis of left lower limb; I48.91 Unspecified atrial fibrillation; K21.9 Gastro-esophageal reflux disease without esophagitis; E78.5 Hyperlipidemia, unspecified; Z87.891 Personal history of nicotine dependence; Z96.642 Presence of left artificial hip joint; Z79.01 Long term (current) use of anticoagulants; Z90.89 Acquired absence of other organs | CPT/HCPCS: 97597; 97598 ==

== ENCOUNTER 2020-12-23 14:39 | Outpatient (CLI) | payer MEDICARE | END 2020-12-23 23:59 | disposition home or self-care (01) | LOC: WOUND 14:39 | PROVIDERS: ATTEND Nurse Practitioner Family | DX: I87.333 Chronic venous hypertension (idiopathic) with ulcer and inflammation of bilateral lower extremity (principal); L97.812 Non-pressure chronic ulcer of other part of right lower leg with fat layer exposed; L97.822 Non-pressure chronic ulcer of other part of left lower leg with fat layer exposed; L03.115 Cellulitis of right lower limb; L03.116 Cellulitis of left lower limb; I48.91 Unspecified atrial fibrillation; I10 Essential (primary) hypertension; K21.9 Gastro-esophageal reflux disease without esophagitis; E78.5 Hyperlipidemia, unspecified; Z87.891 Personal history of nicotine dependence; Z96.642 Presence of left artificial hip joint; Z79.01 Long term (current) use of anticoagulants; Z90.89 Acquired absence of other organs | CPT/HCPCS: G0463 ==

== ENCOUNTER → 2020-12-30 | Outpatient (CLI) | payer MEDICARE | END | disposition home or self-care (01) | LOC: WOUND 08:39 | PROVIDERS: ATTEND Nurse Practitioner Family | DX: I87.333 Chronic venous hypertension (idiopathic) with ulcer and inflammation of bilateral lower extremity (principal); L97.812 Non-pressure chronic ulcer of other part of right lower leg with fat layer exposed; L97.822 Non-pressure chronic ulcer of other part of left lower leg with fat layer exposed; L03.115 Cellulitis of right lower limb; L03.116 Cellulitis of left lower limb; I48.91 Unspecified atrial fibrillation; K21.9 Gastro-esophageal reflux disease without esophagitis; E78.5 Hyperlipidemia, unspecified; Z87.891 Personal history of nicotine dependence; Z96.642 Presence of left artificial hip joint; Z79.01 Long term (current) use of anticoagulants; Z90.89 Acquired absence of other organs | CPT/HCPCS: G0463 ==

== ENCOUNTER 2021-01-06 09:41 | Outpatient (CLI) | payer MEDICARE | END 2021-01-06 23:59 | disposition home or self-care (01) | LOC: WOUND 09:41 | PROVIDERS: ATTEND Nurse Practitioner Family | DX: I87.333 Chronic venous hypertension (idiopathic) with ulcer and inflammation of bilateral lower extremity (principal); L97.812 Non-pressure chronic ulcer of other part of right lower leg with fat layer exposed; L97.822 Non-pressure chronic ulcer of other part of left lower leg with fat layer exposed; L03.115 Cellulitis of right lower limb; L03.116 Cellulitis of left lower limb; I48.91 Unspecified atrial fibrillation; K21.9 Gastro-esophageal reflux disease without esophagitis; E78.5 Hyperlipidemia, unspecified; Z87.891 Personal history of nicotine dependence; Z96.642 Presence of left artificial hip joint; Z79.01 Long term (current) use of anticoagulants; Z90.89 Acquired absence of other organs | CPT/HCPCS: G0463 ==

== ENCOUNTER → 2021-01-13 | Outpatient (CLI) | payer MEDICARE | END | disposition home or self-care (01) | LOC: WOUND 08:30 | PROVIDERS: ATTEND Nurse Practitioner Family | DX: I87.333 Chronic venous hypertension (idiopathic) with ulcer and inflammation of bilateral lower extremity (principal); L97.812 Non-pressure chronic ulcer of other part of right lower leg with fat layer exposed; L97.822 Non-pressure chronic ulcer of other part of left lower leg with fat layer exposed; L03.115 Cellulitis of right lower limb; L03.116 Cellulitis of left lower limb; I48.91 Unspecified atrial fibrillation; K21.9 Gastro-esophageal reflux disease without esophagitis; E78.5 Hyperlipidemia, unspecified; Z87.891 Personal history of nicotine dependence; Z96.642 Presence of left artificial hip joint; Z79.01 Long term (current) use of anticoagulants; Z90.89 Acquired absence of other organs | CPT/HCPCS: 97602 ==

== ENCOUNTER 2021-01-19 08:20 | Emergency (ER) | payer MEDICARE ==
[~2021-01-19] VITALS: Ht 182.9 cm; Wt 109.7 kg
--- NOTE | 2021-01-19 09:26 | NUR ---
TO [facility] FROM LOBBY
--- NOTE | 2021-01-19 09:30 | NUR ---
pt brought back with chief complaint of sob fr 3 days. PT denies other symptoms. Has had covid vaccine
[2021-01-19] MEDS ORDERED: SODIUM CHLORIDE FLUSH 10ML SYR IVF ONE (10:00)
[2021-01-19 10:20] LABS: BASOPHILS % (AUTO) 0 % (0-1); EOSINOPHILS % (AUTO) 2 % (1-7); LYMPHOCYTES % (AUTO) 17 % (22-44); MEAN CORPUSCULAR HEMOGLOBIN 32.3 pg (27.5-34.5); MEAN CORPUSCULAR HGB CONC 33.2 g/dL (33.2-36.2); MEAN PLATELET VOLUME 9.1 fL (7.4-10.4); MONOCYTES % (AUTO) 11 % (2-9); NEUTROPHILS % (AUTO) 70 % (42-75); PLATELET COUNT 127 x10^3/uL (130-400); RED BLOOD COUNT 3.51 x10^6/uL (4.38-5.82)
[2021-01-19 10:21] LABS: ANION GAP 5 mmol/L (5-15); CALCIUM 8.8 mg/dL (8.5-10.1); CHLORIDE 110 mmol/L (98-107)
[2021-01-19 10:22] LABS: ALANINE AMINOTRANSFERASE 13 U/L (12-78)
[2021-01-19 10:25] LABS: MD NO
[2021-01-19 10:26] LABS: ALKALINE PHOSPHATASE 102 U/L (45-117); BILIRUBIN,TOTAL 0.6 mg/dL (0.2-1.0); TOTAL PROTEIN 7.1 g/dL (6.4-8.2); TROPONIN I 0.024 ng/mL (0.000-0.045)
--- NOTE | 2021-01-19 10:32 | NUR ---
PT RESTING IN BED, CALL LIGHT IN REACH. URINAL PROVIDED.
[2021-01-19 10:36] LABS: D-DIMER 1.51 ug/mlFEU (0.00-0.52); INTERNATIONAL NORMALIZED RATIO 2.85 (0.93-1.1); PROTHROMBIN TIME 29.9 Seconds (9.6-11.5)
--- NOTE | 2021-01-19 11:24 | NUR ---
ERMD NOTIFIED PT HAS QUESTIONS. REFUSING CTA AT THIS TIME
[2021-01-19] MEDS ORDERED: OMNIPAQUE 350 MG/ML, 75ML BOTTLE ONE (11:49)
[2021-01-19] MEDS ORDERED: FUROSEMIDE 20 MG TABLET PO STA (12:15)
--- NOTE | 2021-01-19 12:16 | NUR ---
PT BACK FROM IMAGING. ERMD AT [facility] TO DISCUSS POC
[2021-01-19 12:18] VITALS: BP 147/68
[2021-01-19] MEDS ORDERED: FUROSEMIDE 20 MG TABLET ONE (12:20)
--- NOTE | 2021-01-19 12:25 | NUR ---
DISCHARGE INSTTRUCTIONS REVIEWED
== END 2021-01-19 12:46 | disposition home or self-care (01) ==
LOC: ED 09:26
DX: R06.00 Dyspnea, unspecified (principal); R60.0 Localized edema; E78.5 Hyperlipidemia, unspecified; I48.91 Unspecified atrial fibrillation; I10 Essential (primary) hypertension; Z87.891 Personal history of nicotine dependence
CPT/HCPCS: 36415; 71045; 71275; 80053; 83880; 84484; 85025; 85379; 85610; 93005; 99285; Q9967

== ENCOUNTER → 2021-01-20 | Outpatient (CLI) | payer MEDICARE | END | disposition home or self-care (01) | LOC: WOUND 08:41 | PROVIDERS: ATTEND Nurse Practitioner Family | DX: I87.333 Chronic venous hypertension (idiopathic) with ulcer and inflammation of bilateral lower extremity (principal); L97.812 Non-pressure chronic ulcer of other part of right lower leg with fat layer exposed; L97.822 Non-pressure chronic ulcer of other part of left lower leg with fat layer exposed; L03.115 Cellulitis of right lower limb; L03.116 Cellulitis of left lower limb; I48.91 Unspecified atrial fibrillation; K21.9 Gastro-esophageal reflux disease without esophagitis; E78.5 Hyperlipidemia, unspecified; Z87.891 Personal history of nicotine dependence; Z96.642 Presence of left artificial hip joint; Z79.01 Long term (current) use of anticoagulants; Z90.89 Acquired absence of other organs | CPT/HCPCS: 29581 ==

== ENCOUNTER → 2021-01-27 | Outpatient (CLI) | payer MEDICARE ==
[~2021-01-27] MED LIST changes: +BUME1TAB21 PO; +FURO20TA3 PO; +LOSA100T14 PO; +PANT40TA3 PO; +POTA10TA5 PO
== END | disposition home or self-care (01) ==
LOC: WOUND 09:57
PROVIDERS: ATTEND Nurse Practitioner Family
DX: I87.333 Chronic venous hypertension (idiopathic) with ulcer and inflammation of bilateral lower extremity (principal); L97.812 Non-pressure chronic ulcer of other part of right lower leg with fat layer exposed; L97.822 Non-pressure chronic ulcer of other part of left lower leg with fat layer exposed; L03.115 Cellulitis of right lower limb; L03.116 Cellulitis of left lower limb; I48.91 Unspecified atrial fibrillation; K21.9 Gastro-esophageal reflux disease without esophagitis; E78.5 Hyperlipidemia, unspecified; Z87.891 Personal history of nicotine dependence; Z96.642 Presence of left artificial hip joint; Z79.01 Long term (current) use of anticoagulants; Z90.89 Acquired absence of other organs
CPT/HCPCS: 29581

== ENCOUNTER 2021-02-03 08:55 | Outpatient (CLI) | payer MEDICARE | END 2021-02-03 23:59 | disposition home or self-care (01) | LOC: WOUND 08:55 | PROVIDERS: ATTEND Nurse Practitioner Family | DX: I87.333 Chronic venous hypertension (idiopathic) with ulcer and inflammation of bilateral lower extremity (principal); L97.818 Non-pressure chronic ulcer of other part of right lower leg with other specified severity; L97.828 Non-pressure chronic ulcer of other part of left lower leg with other specified severity; I48.91 Unspecified atrial fibrillation; K21.9 Gastro-esophageal reflux disease without esophagitis; E78.5 Hyperlipidemia, unspecified; Z87.891 Personal history of nicotine dependence; Z96.642 Presence of left artificial hip joint; Z79.01 Long term (current) use of anticoagulants; Z90.89 Acquired absence of other organs | CPT/HCPCS: G0463 ==

== ENCOUNTER → 2021-02-17 | Outpatient (CLI) | payer MEDICARE ==
[~2021-02-17] MED LIST changes: +CEFD300C37 PO; +TAMS-11 PO
== END | disposition home or self-care (01) ==
LOC: WOUND 14:21
PROVIDERS: ATTEND Nurse Practitioner Family
DX: I87.333 Chronic venous hypertension (idiopathic) with ulcer and inflammation of bilateral lower extremity (principal); L97.811 Non-pressure chronic ulcer of other part of right lower leg limited to breakdown of skin; L97.821 Non-pressure chronic ulcer of other part of left lower leg limited to breakdown of skin; K21.9 Gastro-esophageal reflux disease without esophagitis; L03.116 Cellulitis of left lower limb; E78.5 Hyperlipidemia, unspecified; I48.21 Permanent atrial fibrillation; M19.90 Unspecified osteoarthritis, unspecified site; I27.20 Pulmonary hypertension, unspecified; I48.0 Paroxysmal atrial fibrillation; E66.9 Obesity, unspecified; Z87.891 Personal history of nicotine dependence; Z96.642 Presence of left artificial hip joint; Z79.01 Long term (current) use of anticoagulants; Z90.89 Acquired absence of other organs; Z90.49 Acquired absence of other specified parts of digestive tract; Z88.6 Allergy status to analgesic agent; Z88.8 Allergy status to other drugs, medicaments and biological substances; Z20.822 Contact with and (suspected) exposure to COVID-19; Z68.33 Body mass index [BMI] 33.0-33.9, adult
CPT/HCPCS: 29581

== ENCOUNTER 2021-02-18 09:21 | Outpatient (CLI) | payer MEDICARE | END 2021-02-18 23:59 | disposition home or self-care (01) | LOC: WOUND 09:21 | PROVIDERS: ATTEND Internal Medicine | DX: I87.333 Chronic venous hypertension (idiopathic) with ulcer and inflammation of bilateral lower extremity (principal); L97.821 Non-pressure chronic ulcer of other part of left lower leg limited to breakdown of skin; L97.811 Non-pressure chronic ulcer of other part of right lower leg limited to breakdown of skin; K21.9 Gastro-esophageal reflux disease without esophagitis; L03.116 Cellulitis of left lower limb; E78.5 Hyperlipidemia, unspecified; I48.21 Permanent atrial fibrillation; I48.0 Paroxysmal atrial fibrillation; M19.90 Unspecified osteoarthritis, unspecified site; I27.20 Pulmonary hypertension, unspecified; E66.9 Obesity, unspecified; E44.0 Moderate protein-calorie malnutrition; Z68.33 Body mass index [BMI] 33.0-33.9, adult; Z87.891 Personal history of nicotine dependence; Z79.01 Long term (current) use of anticoagulants; Z90.89 Acquired absence of other organs; Z90.49 Acquired absence of other specified parts of digestive tract; Z88.6 Allergy status to analgesic agent; Z88.8 Allergy status to other drugs, medicaments and biological substances; Z20.822 Contact with and (suspected) exposure to COVID-19; Z96.643 Presence of artificial hip joint, bilateral | CPT/HCPCS: 29581; G0463 ==

== ENCOUNTER → 2021-02-20 | Outpatient (CLI) | payer MEDICARE | END | disposition home or self-care (01) | LOC: WOUND 09:14 | PROVIDERS: ATTEND Internal Medicine | DX: I87.333 Chronic venous hypertension (idiopathic) with ulcer and inflammation of bilateral lower extremity (principal); L97.811 Non-pressure chronic ulcer of other part of right lower leg limited to breakdown of skin; L97.821 Non-pressure chronic ulcer of other part of left lower leg limited to breakdown of skin; K21.9 Gastro-esophageal reflux disease without esophagitis; L03.116 Cellulitis of left lower limb; E78.5 Hyperlipidemia, unspecified; I48.21 Permanent atrial fibrillation; M19.90 Unspecified osteoarthritis, unspecified site; I27.20 Pulmonary hypertension, unspecified; I48.0 Paroxysmal atrial fibrillation; E66.9 Obesity, unspecified; Z87.891 Personal history of nicotine dependence; Z96.642 Presence of left artificial hip joint; Z79.01 Long term (current) use of anticoagulants; Z90.89 Acquired absence of other organs; Z90.49 Acquired absence of other specified parts of digestive tract; Z88.6 Allergy status to analgesic agent; Z88.8 Allergy status to other drugs, medicaments and biological substances; Z20.822 Contact with and (suspected) exposure to COVID-19; Z68.33 Body mass index [BMI] 33.0-33.9, adult | CPT/HCPCS: G0463 ==

== ENCOUNTER 2021-02-24 08:00 | Outpatient (CLI) | payer MEDICARE | END 2021-02-24 23:59 | disposition home or self-care (01) | LOC: WOUND 08:00 | PROVIDERS: ATTEND Nurse Practitioner Family | DX: I87.333 Chronic venous hypertension (idiopathic) with ulcer and inflammation of bilateral lower extremity (principal); L97.822 Non-pressure chronic ulcer of other part of left lower leg with fat layer exposed; L97.812 Non-pressure chronic ulcer of other part of right lower leg with fat layer exposed; L03.116 Cellulitis of left lower limb; K21.9 Gastro-esophageal reflux disease without esophagitis; E78.5 Hyperlipidemia, unspecified; I48.21 Permanent atrial fibrillation; I48.0 Paroxysmal atrial fibrillation; M19.90 Unspecified osteoarthritis, unspecified site; I27.20 Pulmonary hypertension, unspecified; E66.9 Obesity, unspecified; E44.0 Moderate protein-calorie malnutrition; Z68.33 Body mass index [BMI] 33.0-33.9, adult; Z87.891 Personal history of nicotine dependence; Z96.643 Presence of artificial hip joint, bilateral; Z79.01 Long term (current) use of anticoagulants; Z90.89 Acquired absence of other organs; Z90.49 Acquired absence of other specified parts of digestive tract; Z88.6 Allergy status to analgesic agent; Z88.8 Allergy status to other drugs, medicaments and biological substances; Z20.822 Contact with and (suspected) exposure to COVID-19 | CPT/HCPCS: 29581 ==

== ENCOUNTER → 2021-03-03 | Outpatient (CLI) | payer MEDICARE | END | disposition home or self-care (01) | LOC: WOUND 08:28 | PROVIDERS: ATTEND Nurse Practitioner Family | DX: I87.333 Chronic venous hypertension (idiopathic) with ulcer and inflammation of bilateral lower extremity (principal); L97.822 Non-pressure chronic ulcer of other part of left lower leg with fat layer exposed; L97.812 Non-pressure chronic ulcer of other part of right lower leg with fat layer exposed; L03.116 Cellulitis of left lower limb; K21.9 Gastro-esophageal reflux disease without esophagitis; E78.5 Hyperlipidemia, unspecified; I48.21 Permanent atrial fibrillation; I48.0 Paroxysmal atrial fibrillation; M19.90 Unspecified osteoarthritis, unspecified site; I27.20 Pulmonary hypertension, unspecified; E66.9 Obesity, unspecified; E44.0 Moderate protein-calorie malnutrition; Z68.33 Body mass index [BMI] 33.0-33.9, adult; Z87.891 Personal history of nicotine dependence; Z96.642 Presence of left artificial hip joint; Z79.01 Long term (current) use of anticoagulants; Z90.89 Acquired absence of other organs; Z90.49 Acquired absence of other specified parts of digestive tract; Z88.6 Allergy status to analgesic agent; Z88.8 Allergy status to other drugs, medicaments and biological substances; Z20.822 Contact with and (suspected) exposure to COVID-19 | CPT/HCPCS: 97597; 97598 ==

== ENCOUNTER 2021-03-10 10:25 | Outpatient (CLI) | payer MEDICARE | END 2021-03-10 23:59 | disposition home or self-care (01) | LOC: WOUND 10:25 | PROVIDERS: ATTEND Internal Medicine Infectious Disease | DX: I87.333 Chronic venous hypertension (idiopathic) with ulcer and inflammation of bilateral lower extremity (principal); L97.822 Non-pressure chronic ulcer of other part of left lower leg with fat layer exposed; L97.812 Non-pressure chronic ulcer of other part of right lower leg with fat layer exposed; L03.116 Cellulitis of left lower limb; K21.9 Gastro-esophageal reflux disease without esophagitis; E78.5 Hyperlipidemia, unspecified; I48.21 Permanent atrial fibrillation; I48.0 Paroxysmal atrial fibrillation; M19.90 Unspecified osteoarthritis, unspecified site; I27.20 Pulmonary hypertension, unspecified; E66.9 Obesity, unspecified; E44.0 Moderate protein-calorie malnutrition; Z68.33 Body mass index [BMI] 33.0-33.9, adult; Z87.891 Personal history of nicotine dependence; Z79.01 Long term (current) use of anticoagulants; Z90.89 Acquired absence of other organs; Z90.49 Acquired absence of other specified parts of digestive tract; Z88.6 Allergy status to analgesic agent; Z88.8 Allergy status to other drugs, medicaments and biological substances; Z20.822 Contact with and (suspected) exposure to COVID-19; Z96.643 Presence of artificial hip joint, bilateral | CPT/HCPCS: 97597; 97598 ==

== ENCOUNTER 2021-03-17 10:54 | Outpatient (CLI) | payer MEDICARE | END 2021-03-17 23:59 | disposition home or self-care (01) | LOC: WOUND 10:54 | PROVIDERS: ATTEND Internal Medicine Infectious Disease | DX: I87.333 Chronic venous hypertension (idiopathic) with ulcer and inflammation of bilateral lower extremity (principal); L97.812 Non-pressure chronic ulcer of other part of right lower leg with fat layer exposed; L97.822 Non-pressure chronic ulcer of other part of left lower leg with fat layer exposed; L03.116 Cellulitis of left lower limb; K21.9 Gastro-esophageal reflux disease without esophagitis; E78.5 Hyperlipidemia, unspecified; I48.21 Permanent atrial fibrillation; I48.0 Paroxysmal atrial fibrillation; M19.90 Unspecified osteoarthritis, unspecified site; I27.20 Pulmonary hypertension, unspecified; E66.9 Obesity, unspecified; E44.0 Moderate protein-calorie malnutrition; Z68.33 Body mass index [BMI] 33.0-33.9, adult; Z87.891 Personal history of nicotine dependence; Z79.01 Long term (current) use of anticoagulants; Z90.89 Acquired absence of other organs; Z88.6 Allergy status to analgesic agent; Z88.8 Allergy status to other drugs, medicaments and biological substances; Z20.822 Contact with and (suspected) exposure to COVID-19; Z96.643 Presence of artificial hip joint, bilateral | CPT/HCPCS: 97597; G0463; 99214 ==

== ENCOUNTER 2021-03-24 09:23 | Emergency (ER) | payer MEDICARE ==
[~2021-03-24] VITALS: Ht 182.9 cm; Wt 108.0 kg
[2021-03-24 09:40] VITALS: BP 94/42
--- NOTE | 2021-03-24 11:06 | NUR ---
mechanical engineering advisor: pt from lobby to room T1
--- NOTE | 2021-03-24 11:11 | NUR ---
PT AMBULATORY TO BR, PT BACK TO ROOM, CHANGED MELANY GOWN. MONITORS CONNCETED. AT BS
[2021-03-24 11:31] LABS: BASOPHILS % (AUTO) 1 % (0-1); EOSINOPHILS % (AUTO) 2 % (1-7); LYMPHOCYTES % (AUTO) 15 % (22-44); MEAN CORPUSCULAR HEMOGLOBIN 28.6 pg (27.5-34.5); MEAN CORPUSCULAR HGB CONC 32.3 g/dL (33.2-36.2); MEAN PLATELET VOLUME 8.6 fL (7.4-10.4); MONOCYTES % (AUTO) 15 % (2-9); NEUTROPHILS % (AUTO) 68 % (42-75); PLATELET COUNT 176 x10^3/uL (130-400); RED BLOOD COUNT 2.84 x10^6/uL (4.38-5.82); RED CELL DISTRIBUTION WIDTH 18.1 % (9.4-14.8)
[2021-03-24 11:34] LABS: MD NO
[2021-03-24 11:49] LABS: ANION GAP 7 mmol/L (5-15); CALCIUM 8.6 mg/dL (8.5-10.1); CHLORIDE 104 mmol/L (98-107); CREATININE 1.94 mg/dL (0.7-1.3)
[2021-03-24] MEDS ORDERED: CEPHALEXIN 500 MG CAPSULE ONE (12:50)
--- NOTE | 2021-03-24 13:07 | NUR ---
THIS RN TALKING TO [facility] AT [facility], LIZBETH TOMAS STATED PT CAN GO BACK TO [facility] CL[facility] AFTER DC FROM ED FOR COMPRESSION WOUND CARE.
--- NOTE | 2021-03-24 13:26 | NUR ---
Patient given discharge instructions and RX,they have confirmed that they understand the instructions. Patient ambulatory with steady gait.
[2021-03-24] MEDS ORDERED: CEPHALEXIN 500 MG CAPSULE PO ONE (13:30)
== END 2021-03-24 13:28 | disposition home or self-care (01) ==
LOC: ED 13:13
DX: L03.116 Cellulitis of left lower limb (principal); I48.91 Unspecified atrial fibrillation; Z79.01 Long term (current) use of anticoagulants
CPT/HCPCS: 36415; 80048; 82040; 85025; 99284

== ENCOUNTER → 2021-03-24 | Outpatient (CLI) | payer MEDICARE | END | disposition home or self-care (01) | LOC: WOUND 08:28 | PROVIDERS: ATTEND Internal Medicine Cardiovascular Disease | DX: I87.333 Chronic venous hypertension (idiopathic) with ulcer and inflammation of bilateral lower extremity (principal); L97.822 Non-pressure chronic ulcer of other part of left lower leg with fat layer exposed; L97.811 Non-pressure chronic ulcer of other part of right lower leg limited to breakdown of skin; L03.116 Cellulitis of left lower limb; K21.9 Gastro-esophageal reflux disease without esophagitis; E78.5 Hyperlipidemia, unspecified; I48.21 Permanent atrial fibrillation; I48.0 Paroxysmal atrial fibrillation; M19.90 Unspecified osteoarthritis, unspecified site; I27.20 Pulmonary hypertension, unspecified; E66.9 Obesity, unspecified; E44.0 Moderate protein-calorie malnutrition; Z68.33 Body mass index [BMI] 33.0-33.9, adult; Z87.891 Personal history of nicotine dependence; Z79.01 Long term (current) use of anticoagulants; Z90.89 Acquired absence of other organs; Z88.6 Allergy status to analgesic agent; Z88.8 Allergy status to other drugs, medicaments and biological substances; Z20.822 Contact with and (suspected) exposure to COVID-19; Z96.643 Presence of artificial hip joint, bilateral | CPT/HCPCS: 29581; G0463 ==

== ENCOUNTER → 2021-03-27 | Outpatient (CLI) | payer MEDICARE | END | disposition home or self-care (01) | LOC: WOUND 12:55 | PROVIDERS: ATTEND Internal Medicine | DX: I87.333 Chronic venous hypertension (idiopathic) with ulcer and inflammation of bilateral lower extremity (principal); L97.822 Non-pressure chronic ulcer of other part of left lower leg with fat layer exposed; L97.811 Non-pressure chronic ulcer of other part of right lower leg limited to breakdown of skin; L03.116 Cellulitis of left lower limb; K21.9 Gastro-esophageal reflux disease without esophagitis; E78.5 Hyperlipidemia, unspecified; I48.21 Permanent atrial fibrillation; I48.0 Paroxysmal atrial fibrillation; M19.90 Unspecified osteoarthritis, unspecified site; I27.20 Pulmonary hypertension, unspecified; E66.9 Obesity, unspecified; E44.0 Moderate protein-calorie malnutrition; Z68.33 Body mass index [BMI] 33.0-33.9, adult; Z87.891 Personal history of nicotine dependence; Z79.01 Long term (current) use of anticoagulants; Z90.89 Acquired absence of other organs; Z88.6 Allergy status to analgesic agent; Z88.8 Allergy status to other drugs, medicaments and biological substances; Z20.822 Contact with and (suspected) exposure to COVID-19; Z96.643 Presence of artificial hip joint, bilateral | CPT/HCPCS: 29581; 97597; 97598 ==

== ENCOUNTER → 2021-03-31 | Outpatient (CLI) | payer MEDICARE | END | disposition home or self-care (01) | LOC: WOUND 08:46 | PROVIDERS: ATTEND Internal Medicine | DX: I87.333 Chronic venous hypertension (idiopathic) with ulcer and inflammation of bilateral lower extremity (principal); L97.822 Non-pressure chronic ulcer of other part of left lower leg with fat layer exposed; L97.811 Non-pressure chronic ulcer of other part of right lower leg limited to breakdown of skin; L03.116 Cellulitis of left lower limb; K21.9 Gastro-esophageal reflux disease without esophagitis; E78.5 Hyperlipidemia, unspecified; I48.21 Permanent atrial fibrillation; I48.0 Paroxysmal atrial fibrillation; M19.90 Unspecified osteoarthritis, unspecified site; I27.20 Pulmonary hypertension, unspecified; E66.9 Obesity, unspecified; E44.0 Moderate protein-calorie malnutrition; Z68.33 Body mass index [BMI] 33.0-33.9, adult; Z87.891 Personal history of nicotine dependence; Z79.01 Long term (current) use of anticoagulants; Z90.89 Acquired absence of other organs; Z88.6 Allergy status to analgesic agent; Z88.8 Allergy status to other drugs, medicaments and biological substances; Z20.822 Contact with and (suspected) exposure to COVID-19; Z96.643 Presence of artificial hip joint, bilateral | CPT/HCPCS: 29581 ==

== ENCOUNTER → 2021-04-07 | Outpatient (CLI) | payer MEDICARE | END | disposition home or self-care (01) | LOC: WOUND 09:57 | PROVIDERS: ATTEND Nurse Practitioner Family | DX: I87.333 Chronic venous hypertension (idiopathic) with ulcer and inflammation of bilateral lower extremity (principal); L97.822 Non-pressure chronic ulcer of other part of left lower leg with fat layer exposed; L97.811 Non-pressure chronic ulcer of other part of right lower leg limited to breakdown of skin; L03.116 Cellulitis of left lower limb; K21.9 Gastro-esophageal reflux disease without esophagitis; E78.5 Hyperlipidemia, unspecified; I48.21 Permanent atrial fibrillation; I48.0 Paroxysmal atrial fibrillation; M19.90 Unspecified osteoarthritis, unspecified site; I27.20 Pulmonary hypertension, unspecified; E66.9 Obesity, unspecified; E44.0 Moderate protein-calorie malnutrition; Z68.33 Body mass index [BMI] 33.0-33.9, adult; Z87.891 Personal history of nicotine dependence; Z79.01 Long term (current) use of anticoagulants; Z90.89 Acquired absence of other organs; Z88.6 Allergy status to analgesic agent; Z88.8 Allergy status to other drugs, medicaments and biological substances; Z20.822 Contact with and (suspected) exposure to COVID-19; Z96.643 Presence of artificial hip joint, bilateral | CPT/HCPCS: 29581; 97597; 97598 ==

== ENCOUNTER 2021-04-14 08:56 | Outpatient (CLI) | payer MEDICARE | END 2021-04-14 23:59 | disposition home or self-care (01) | LOC: WOUND 08:56 | PROVIDERS: ATTEND Internal Medicine Infectious Disease | DX: I87.333 Chronic venous hypertension (idiopathic) with ulcer and inflammation of bilateral lower extremity (principal); L97.822 Non-pressure chronic ulcer of other part of left lower leg with fat layer exposed; L97.811 Non-pressure chronic ulcer of other part of right lower leg limited to breakdown of skin; K21.9 Gastro-esophageal reflux disease without esophagitis; E78.5 Hyperlipidemia, unspecified; L03.116 Cellulitis of left lower limb; I48.21 Permanent atrial fibrillation; I48.0 Paroxysmal atrial fibrillation; M19.90 Unspecified osteoarthritis, unspecified site; I27.20 Pulmonary hypertension, unspecified; E66.9 Obesity, unspecified; E44.0 Moderate protein-calorie malnutrition; Z68.33 Body mass index [BMI] 33.0-33.9, adult; Z87.891 Personal history of nicotine dependence; Z79.01 Long term (current) use of anticoagulants; Z90.89 Acquired absence of other organs; Z88.6 Allergy status to analgesic agent; Z88.8 Allergy status to other drugs, medicaments and biological substances; Z20.822 Contact with and (suspected) exposure to COVID-19; Z96.643 Presence of artificial hip joint, bilateral | CPT/HCPCS: 15271; 15272; 29581; Q4101 ==

== ENCOUNTER 2021-04-21 09:23 | Outpatient (CLI) | payer MEDICARE | END 2021-04-21 23:59 | disposition home or self-care (01) | LOC: WOUND 09:23 | PROVIDERS: ATTEND Internal Medicine Infectious Disease | DX: I87.333 Chronic venous hypertension (idiopathic) with ulcer and inflammation of bilateral lower extremity (principal); L97.822 Non-pressure chronic ulcer of other part of left lower leg with fat layer exposed; L97.811 Non-pressure chronic ulcer of other part of right lower leg limited to breakdown of skin; L03.116 Cellulitis of left lower limb; K21.9 Gastro-esophageal reflux disease without esophagitis; E78.5 Hyperlipidemia, unspecified; I48.21 Permanent atrial fibrillation; I48.0 Paroxysmal atrial fibrillation; M19.90 Unspecified osteoarthritis, unspecified site; I27.20 Pulmonary hypertension, unspecified; E66.9 Obesity, unspecified; E44.0 Moderate protein-calorie malnutrition; Z68.33 Body mass index [BMI] 33.0-33.9, adult; Z87.891 Personal history of nicotine dependence; Z79.01 Long term (current) use of anticoagulants; Z90.89 Acquired absence of other organs; Z88.6 Allergy status to analgesic agent; Z88.8 Allergy status to other drugs, medicaments and biological substances; Z20.822 Contact with and (suspected) exposure to COVID-19; Z96.643 Presence of artificial hip joint, bilateral | CPT/HCPCS: 29581; 97597; 97598 ==

== ENCOUNTER → 2021-04-28 | Outpatient (CLI) | payer MEDICARE | END | disposition home or self-care (01) | LOC: WOUND 09:21 | PROVIDERS: ATTEND Nurse Practitioner Family | DX: I87.333 Chronic venous hypertension (idiopathic) with ulcer and inflammation of bilateral lower extremity (principal); L97.822 Non-pressure chronic ulcer of other part of left lower leg with fat layer exposed; L97.811 Non-pressure chronic ulcer of other part of right lower leg limited to breakdown of skin; L03.116 Cellulitis of left lower limb; K21.9 Gastro-esophageal reflux disease without esophagitis; E78.5 Hyperlipidemia, unspecified; I48.21 Permanent atrial fibrillation; I48.0 Paroxysmal atrial fibrillation; M19.90 Unspecified osteoarthritis, unspecified site; I27.20 Pulmonary hypertension, unspecified; E66.9 Obesity, unspecified; E44.0 Moderate protein-calorie malnutrition; Z68.33 Body mass index [BMI] 33.0-33.9, adult; Z87.891 Personal history of nicotine dependence; Z79.01 Long term (current) use of anticoagulants; Z90.89 Acquired absence of other organs; Z88.6 Allergy status to analgesic agent; Z88.8 Allergy status to other drugs, medicaments and biological substances; Z20.822 Contact with and (suspected) exposure to COVID-19; Z96.643 Presence of artificial hip joint, bilateral | CPT/HCPCS: 97597 ==

== ENCOUNTER 2021-05-05 08:47 | Outpatient (CLI) | payer MEDICARE ==
[~2021-05-05 08:47] MED LIST changes: +POTA-143 PO; -POTA20TA6 PO
== END 2021-05-05 23:59 | disposition home or self-care (01) ==
LOC: WOUND 08:47
PROVIDERS: ATTEND Nurse Practitioner Family
DX: I87.332 Chronic venous hypertension (idiopathic) with ulcer and inflammation of left lower extremity (principal); L97.822 Non-pressure chronic ulcer of other part of left lower leg with fat layer exposed; S80.822A Blister (nonthermal), left lower leg, initial encounter; S80.821A Blister (nonthermal), right lower leg, initial encounter; E78.5 Hyperlipidemia, unspecified; K21.9 Gastro-esophageal reflux disease without esophagitis; I48.0 Paroxysmal atrial fibrillation; I48.21 Permanent atrial fibrillation; I27.20 Pulmonary hypertension, unspecified; M19.90 Unspecified osteoarthritis, unspecified site; E66.09 Other obesity due to excess calories; Z68.33 Body mass index [BMI] 33.0-33.9, adult; Z87.891 Personal history of nicotine dependence; Z79.899 Other long term (current) drug therapy; Z90.89 Acquired absence of other organs; X58.XXXA Exposure to other specified factors, initial encounter; Y93.89 Activity, other specified; Y92.89 Other specified places as the place of occurrence of the external cause; Y99.8 Other external cause status
CPT/HCPCS: 29581

== ENCOUNTER 2021-05-12 09:13 | Outpatient (CLI) | payer MEDICARE ==
[~2021-05-12 09:13] MED LIST changes: -POTA-143 PO; +POTA20TA6 PO
== END 2021-05-12 23:59 | disposition home or self-care (01) ==
LOC: WOUND 09:13
PROVIDERS: ATTEND Nurse Practitioner Family
DX: I87.333 Chronic venous hypertension (idiopathic) with ulcer and inflammation of bilateral lower extremity (principal); L97.822 Non-pressure chronic ulcer of other part of left lower leg with fat layer exposed; L97.812 Non-pressure chronic ulcer of other part of right lower leg with fat layer exposed; K21.9 Gastro-esophageal reflux disease without esophagitis; E78.5 Hyperlipidemia, unspecified; I48.21 Permanent atrial fibrillation; I48.0 Paroxysmal atrial fibrillation; M19.90 Unspecified osteoarthritis, unspecified site; I27.20 Pulmonary hypertension, unspecified; E66.9 Obesity, unspecified; E44.0 Moderate protein-calorie malnutrition; Z68.33 Body mass index [BMI] 33.0-33.9, adult; Z87.891 Personal history of nicotine dependence; Z79.01 Long term (current) use of anticoagulants; Z90.89 Acquired absence of other organs; Z88.6 Allergy status to analgesic agent; Z88.8 Allergy status to other drugs, medicaments and biological substances; Z20.822 Contact with and (suspected) exposure to COVID-19; Z96.643 Presence of artificial hip joint, bilateral
CPT/HCPCS: 29581; G0463

== ENCOUNTER 2021-05-19 08:50 | Outpatient (CLI) | payer MEDICARE | END 2021-05-19 23:59 | disposition home or self-care (01) | LOC: WOUND 08:50 | PROVIDERS: ATTEND Internal Medicine Infectious Disease | DX: I87.333 Chronic venous hypertension (idiopathic) with ulcer and inflammation of bilateral lower extremity (principal); L97.821 Non-pressure chronic ulcer of other part of left lower leg limited to breakdown of skin; L97.811 Non-pressure chronic ulcer of other part of right lower leg limited to breakdown of skin; I48.91 Unspecified atrial fibrillation; E78.5 Hyperlipidemia, unspecified; K21.9 Gastro-esophageal reflux disease without esophagitis; I48.0 Paroxysmal atrial fibrillation; I48.21 Permanent atrial fibrillation; I27.20 Pulmonary hypertension, unspecified; M19.90 Unspecified osteoarthritis, unspecified site; E66.09 Other obesity due to excess calories; Z68.33 Body mass index [BMI] 33.0-33.9, adult; Z87.891 Personal history of nicotine dependence; Z96.643 Presence of artificial hip joint, bilateral; Z90.89 Acquired absence of other organs | CPT/HCPCS: 97597; 99214 ==

== ENCOUNTER → 2021-05-26 | Outpatient (CLI) | payer MEDICARE | END | disposition home or self-care (01) | LOC: WOUND 09:22 | PROVIDERS: ATTEND Internal Medicine Infectious Disease | DX: I87.333 Chronic venous hypertension (idiopathic) with ulcer and inflammation of bilateral lower extremity (principal); L97.811 Non-pressure chronic ulcer of other part of right lower leg limited to breakdown of skin; L97.821 Non-pressure chronic ulcer of other part of left lower leg limited to breakdown of skin; L03.116 Cellulitis of left lower limb; K21.9 Gastro-esophageal reflux disease without esophagitis; E78.5 Hyperlipidemia, unspecified; I48.21 Permanent atrial fibrillation; I48.0 Paroxysmal atrial fibrillation; M19.90 Unspecified osteoarthritis, unspecified site; I27.20 Pulmonary hypertension, unspecified; E44.0 Moderate protein-calorie malnutrition; E66.09 Other obesity due to excess calories; Z68.33 Body mass index [BMI] 33.0-33.9, adult; Z87.891 Personal history of nicotine dependence; Z79.01 Long term (current) use of anticoagulants; Z90.89 Acquired absence of other organs; Z88.6 Allergy status to analgesic agent; Z88.8 Allergy status to other drugs, medicaments and biological substances; Z20.822 Contact with and (suspected) exposure to COVID-19; Z96.643 Presence of artificial hip joint, bilateral | CPT/HCPCS: 29581 ==

== ENCOUNTER → 2021-06-01 | Outpatient (CLI) | payer MEDICARE | END | disposition home or self-care (01) | LOC: WOUND 13:22 | PROVIDERS: ATTEND Internal Medicine | DX: I87.333 Chronic venous hypertension (idiopathic) with ulcer and inflammation of bilateral lower extremity (principal); L97.811 Non-pressure chronic ulcer of other part of right lower leg limited to breakdown of skin; L97.821 Non-pressure chronic ulcer of other part of left lower leg limited to breakdown of skin; L03.116 Cellulitis of left lower limb; K21.9 Gastro-esophageal reflux disease without esophagitis; E78.5 Hyperlipidemia, unspecified; I48.21 Permanent atrial fibrillation; I48.0 Paroxysmal atrial fibrillation; M19.90 Unspecified osteoarthritis, unspecified site; I27.20 Pulmonary hypertension, unspecified; E44.0 Moderate protein-calorie malnutrition; E66.09 Other obesity due to excess calories; Z68.33 Body mass index [BMI] 33.0-33.9, adult; Z87.891 Personal history of nicotine dependence; Z79.01 Long term (current) use of anticoagulants; Z90.89 Acquired absence of other organs; Z88.6 Allergy status to analgesic agent; Z88.8 Allergy status to other drugs, medicaments and biological substances; Z20.822 Contact with and (suspected) exposure to COVID-19; Z96.643 Presence of artificial hip joint, bilateral | CPT/HCPCS: 97597 ==

== ENCOUNTER 2021-06-16 09:52 | Outpatient (CLI) | payer MEDICARE | END 2021-06-16 23:59 | disposition home or self-care (01) | LOC: WOUND 09:52 | PROVIDERS: ATTEND Nurse Practitioner Family | DX: I87.333 Chronic venous hypertension (idiopathic) with ulcer and inflammation of bilateral lower extremity (principal); L97.811 Non-pressure chronic ulcer of other part of right lower leg limited to breakdown of skin; L97.821 Non-pressure chronic ulcer of other part of left lower leg limited to breakdown of skin; L03.116 Cellulitis of left lower limb; K21.9 Gastro-esophageal reflux disease without esophagitis; E78.5 Hyperlipidemia, unspecified; I48.21 Permanent atrial fibrillation; I48.0 Paroxysmal atrial fibrillation; M19.90 Unspecified osteoarthritis, unspecified site; I27.20 Pulmonary hypertension, unspecified; E44.0 Moderate protein-calorie malnutrition; E66.09 Other obesity due to excess calories; Z68.33 Body mass index [BMI] 33.0-33.9, adult; Z87.891 Personal history of nicotine dependence; Z79.01 Long term (current) use of anticoagulants; Z90.89 Acquired absence of other organs; Z88.6 Allergy status to analgesic agent; Z88.8 Allergy status to other drugs, medicaments and biological substances; Z20.822 Contact with and (suspected) exposure to COVID-19; Z96.643 Presence of artificial hip joint, bilateral | CPT/HCPCS: 29581 ==

== ENCOUNTER 2021-06-23 09:31 | Outpatient (CLI) | payer MEDICARE ==
[~2021-06-23 09:31] MED LIST changes: +POTA-143 PO; -POTA20TA6 PO
== END 2021-06-23 23:59 | disposition home or self-care (01) ==
LOC: WOUND 09:31
PROVIDERS: ATTEND Nurse Practitioner Family
DX: I87.333 Chronic venous hypertension (idiopathic) with ulcer and inflammation of bilateral lower extremity (principal); L97.811 Non-pressure chronic ulcer of other part of right lower leg limited to breakdown of skin; L97.821 Non-pressure chronic ulcer of other part of left lower leg limited to breakdown of skin; L03.116 Cellulitis of left lower limb; K21.9 Gastro-esophageal reflux disease without esophagitis; E78.5 Hyperlipidemia, unspecified; I48.21 Permanent atrial fibrillation; I48.0 Paroxysmal atrial fibrillation; M19.90 Unspecified osteoarthritis, unspecified site; I27.20 Pulmonary hypertension, unspecified; E44.0 Moderate protein-calorie malnutrition; E66.09 Other obesity due to excess calories; Z68.33 Body mass index [BMI] 33.0-33.9, adult; Z87.891 Personal history of nicotine dependence; Z79.01 Long term (current) use of anticoagulants; Z90.89 Acquired absence of other organs; Z88.6 Allergy status to analgesic agent; Z88.8 Allergy status to other drugs, medicaments and biological substances; Z20.822 Contact with and (suspected) exposure to COVID-19; Z96.643 Presence of artificial hip joint, bilateral
CPT/HCPCS: 29581

== ENCOUNTER 2021-06-30 10:20 | Outpatient (CLI) | payer MEDICARE | END 2021-06-30 23:59 | disposition home or self-care (01) | LOC: WOUND 10:20 | PROVIDERS: ATTEND Nurse Practitioner Family | DX: I87.333 Chronic venous hypertension (idiopathic) with ulcer and inflammation of bilateral lower extremity (principal); L97.821 Non-pressure chronic ulcer of other part of left lower leg limited to breakdown of skin; L97.811 Non-pressure chronic ulcer of other part of right lower leg limited to breakdown of skin; S80.822D Blister (nonthermal), left lower leg, subsequent encounter; E78.5 Hyperlipidemia, unspecified; K21.9 Gastro-esophageal reflux disease without esophagitis; I48.21 Permanent atrial fibrillation; I48.0 Paroxysmal atrial fibrillation; I27.20 Pulmonary hypertension, unspecified; M19.90 Unspecified osteoarthritis, unspecified site; E66.09 Other obesity due to excess calories; Z79.01 Long term (current) use of anticoagulants; Z68.33 Body mass index [BMI] 33.0-33.9, adult; Z96.643 Presence of artificial hip joint, bilateral; Z90.89 Acquired absence of other organs; Z87.891 Personal history of nicotine dependence; X58.XXXD Exposure to other specified factors, subsequent encounter | CPT/HCPCS: 29581 ==

== ENCOUNTER 2021-07-07 08:18 | Outpatient (CLI) | payer MEDICARE | END 2021-07-07 23:59 | disposition home or self-care (01) | LOC: WOUND 08:18 | PROVIDERS: ATTEND Nurse Practitioner Family | DX: I87.333 Chronic venous hypertension (idiopathic) with ulcer and inflammation of bilateral lower extremity (principal); L97.811 Non-pressure chronic ulcer of other part of right lower leg limited to breakdown of skin; L97.822 Non-pressure chronic ulcer of other part of left lower leg with fat layer exposed; S80.822D Blister (nonthermal), left lower leg, subsequent encounter; E78.5 Hyperlipidemia, unspecified; K21.9 Gastro-esophageal reflux disease without esophagitis; I48.21 Permanent atrial fibrillation; I48.0 Paroxysmal atrial fibrillation; I27.20 Pulmonary hypertension, unspecified; M19.90 Unspecified osteoarthritis, unspecified site; E44.0 Moderate protein-calorie malnutrition; E66.09 Other obesity due to excess calories; Z68.33 Body mass index [BMI] 33.0-33.9, adult; Z79.01 Long term (current) use of anticoagulants; Z96.643 Presence of artificial hip joint, bilateral; Z90.89 Acquired absence of other organs; Z87.891 Personal history of nicotine dependence; Z88.6 Allergy status to analgesic agent; Z88.8 Allergy status to other drugs, medicaments and biological substances; Z20.822 Contact with and (suspected) exposure to COVID-19; X58.XXXD Exposure to other specified factors, subsequent encounter | CPT/HCPCS: 29581 ==

== ENCOUNTER → 2021-07-14 | Outpatient (CLI) | payer MEDICARE | END | disposition home or self-care (01) | LOC: WOUND 08:58 | PROVIDERS: ATTEND Nurse Practitioner Family | DX: I87.333 Chronic venous hypertension (idiopathic) with ulcer and inflammation of bilateral lower extremity (principal); L97.811 Non-pressure chronic ulcer of other part of right lower leg limited to breakdown of skin; L97.822 Non-pressure chronic ulcer of other part of left lower leg with fat layer exposed; S80.822D Blister (nonthermal), left lower leg, subsequent encounter; E78.5 Hyperlipidemia, unspecified; K21.9 Gastro-esophageal reflux disease without esophagitis; I48.21 Permanent atrial fibrillation; I48.0 Paroxysmal atrial fibrillation; I27.20 Pulmonary hypertension, unspecified; M19.90 Unspecified osteoarthritis, unspecified site; E44.0 Moderate protein-calorie malnutrition; E66.09 Other obesity due to excess calories; Z68.33 Body mass index [BMI] 33.0-33.9, adult; Z79.01 Long term (current) use of anticoagulants; Z96.643 Presence of artificial hip joint, bilateral; Z90.89 Acquired absence of other organs; Z79.82 Long term (current) use of aspirin; Z87.891 Personal history of nicotine dependence; Z88.6 Allergy status to analgesic agent; Z88.8 Allergy status to other drugs, medicaments and biological substances; Z20.822 Contact with and (suspected) exposure to COVID-19; X58.XXXD Exposure to other specified factors, subsequent encounter | CPT/HCPCS: 29581 ==

== ENCOUNTER → 2021-07-21 | Outpatient (CLI) | payer MEDICARE | END | disposition home or self-care (01) | LOC: WOUND 08:39 | PROVIDERS: ATTEND Internal Medicine Infectious Disease | DX: I87.333 Chronic venous hypertension (idiopathic) with ulcer and inflammation of bilateral lower extremity (principal); L97.811 Non-pressure chronic ulcer of other part of right lower leg limited to breakdown of skin; L97.822 Non-pressure chronic ulcer of other part of left lower leg with fat layer exposed; E78.5 Hyperlipidemia, unspecified; K21.9 Gastro-esophageal reflux disease without esophagitis; I48.21 Permanent atrial fibrillation; I48.0 Paroxysmal atrial fibrillation; I27.20 Pulmonary hypertension, unspecified; M19.90 Unspecified osteoarthritis, unspecified site; E44.0 Moderate protein-calorie malnutrition; E66.09 Other obesity due to excess calories; Z68.33 Body mass index [BMI] 33.0-33.9, adult; Z79.01 Long term (current) use of anticoagulants; Z96.643 Presence of artificial hip joint, bilateral; Z90.89 Acquired absence of other organs; Z79.82 Long term (current) use of aspirin; Z87.891 Personal history of nicotine dependence; Z88.6 Allergy status to analgesic agent; Z88.8 Allergy status to other drugs, medicaments and biological substances; Z20.822 Contact with and (suspected) exposure to COVID-19 | CPT/HCPCS: 97597 ==